=== PATIENT | female | born 1990 | race Two or more races ===

== ENCOUNTER → 2022-09-23 | Day surgery (SDC) | payer OTHER ==
[~2022-09-23] VITALS: Ht 167.6 cm; Wt 86.2 kg
--- NOTE | 2022-09-23 07:05 | NUR ---
PTE ALERTA Y ORIENTADA POR STEVEN ESFERAS CON BUEN PATRON RESPIRATORIO REFIERE QUE VIENE POR REFERIDO DE POR "INCOMPLETE "
--- NOTE | 2022-09-23 08:28 | NUR ---
WILY HARRIS Y WILY BURNS ORIENTAN A PTE SOBRE PROCESO DE ADMISION Y TX A SEGUIR, LA MISMA REFIERE ENTENDER. SE KASEY MUESTRAS DE LAB BAJO MEDIDAS ASEPTICAS Y SE CANALIZA EN RA, ANGIO #20, RECIBIENDO RL A 150ML/HR. PEND GYNECOLOGY CONSULT
== END | disposition home or self-care (01) ==
LOC: ER 06:37 → CIR.AMB 08:32 → ER 08:32 → SEC-K 08:32 → EDSTATUS 13:15 → SEC-K 14:08 → O/R 14:08
PROVIDERS: ATTEND General Practice
DX: O03.4 Incomplete spontaneous abortion without complication (principal); Z88.6 Allergy status to analgesic agent; Z20.822 Contact with and (suspected) exposure to COVID-19